=== PATIENT | female | born 1960 | race American Indian/Alaskan Native ===

== ENCOUNTER 2017-07-30 06:14 | Emergency (ER) | payer OTHER ==
[2017-07-30 06:15] VITALS: BMI 39.3
--- NOTE | 2017-07-30 07:18 | ED PDOC ---
Arrival/HPI - General Chief Complaint: Lower Extremity Problem/Injury Time Seen by Provider: 07/30/17 07:10 Historian: Patient - History of Present Illness Narrative History of Present Illness (Text): 07/30/17 07:20 57 year old female, whose past medical history includes NIDDM, hypertension, and anemia, presents to the emergency department complaining of right calf pain and swelling that began yesterday. Patient reports she woke up yesterday when the pain began and the pain worsens when walking. She denies any trauma associated with the symptoms. Patient denies ever smoking, any history or family history of blood clots, any recent travels, any fever, chills, chest pain , shortness of breath, nausea, vomiting, diarrhea, back pain, neck pain, headache, dizziness, or any other complaints. PMD: Dr. Shane Julian Time/Duration: Other (yesterday) Symptom Onset: Sudden Symptom Course: Unchanged Activities at Onset: Light Context: Home Past Medical History - Provider Review Nursing Documentation Reviewed: Yes - Travel History Have you recently traveled outside [place] w/in the past 3 mons?: No - Past History Past History: No Previous - Infectious Disease Hx of Infectious Diseases: None - Tetanus Immunization Tetanus Immunization: Unknown - Cardiac Hx Cardiac Disorders: Yes Hx Hypertension: Yes - Pulmonary Hx Respiratory Disorders: No - Neurological Hx Neurological Disorder: No - HEENT Hx HEENT Disorder: No - Renal Hx Renal Disorder: No - Endocrine/Metabolic Hx Endocrine Disorders: Yes Hx Diabetes Mellitus Type 1: Yes - Hematological/Oncological Hx Blood Disorders: Yes Hx Anemia: Yes Hx Blood Transfusions: Yes Hx Blood Transfusion Reaction: No - Integumentary Hx Dermatological Disorder: No - Musculoskeletal/Rheumatological Hx Musculoskeletal Disorders: Yes (TORN MENISCUS LEFT KNEE) Hx Arthritis: Yes - Gastrointestinal Hx Gastrointestinal Disorders: No - Genitourinary/Gynecological Hx Genitourinary Disorders: No - Psychiatric Hx Psychophysiologic Disorder: No Hx Substance Use: No - Past Surgical History Past Surgical History: No Previous - Surgical History Hx Hysterectomy: Yes - Anesthesia Hx Anesthesia: Yes Hx Anesthesia Reactions: No Hx Malignant Hyperthermia: No - Suicidal Assessment Feels Threatened In Home Enviroment: No Family/Social History - Physician Review Nursing Documentation Reviewed: Yes Family/Social History: denies: Blood Clots Smoking Status: Light Smoker < 10 Cigarettes Daily Hx Alcohol Use: Yes Hx Substance Use: No Hx Substance Use Treatment: No Allergies/Home Meds Allergies/Adverse Reactions: Allergies No Known Allergies Allergy (Verified 10/27/16 12:20) Home Medications: Home Meds Medication Instructions Recorded Confirmed Clonidine HCl 0.2 mg PO TID 09/12/12 07/30/17 Enalapril Maleate 10 mg PO DAILY 08/25/14 07/30/17 Aspirin [Aspirin Chewable] 81 mg PO DAILY 04/23/16 07/30/17 Gemfibrozil [Lopid] 600 mg PO BID 04/23/16 07/30/17 metFORMIN [glucOPHAGE] 850 mg PO TID 04/23/16 07/30/17 Review of Systems - Review of Systems Constitutional: absent: Fatigue, Fevers, Other (Chills) Eyes: absent: Eye Pain ENT: absent: TMJ Pain, Voice Changes Respiratory: absent: SOB Cardiovascular: Edema, Calf Pain. absent: Chest Pain, GUTIERREZ Gastrointestinal: absent: Diarrhea, Nausea, Vomiting Musculoskeletal: Other (right calf pain and swelling). absent: Back Pain, Neck Pain, Joint Swelling Neurological: Gait Changes (pain worsens when walking). absent: Headache, Dizziness, Facial Droop Hemo/Lymphatic: absent: Easy Bleeding Physical Exam - Physical Exam Narrative Physical Exam (Text): Head: Atraumatic. Normocephalic. Eyes: PERRL. EOMI. Conjunctivae are not pale. ENT: Mucous membranes are moist and intact. Neck: Supple. Full ROM. Cardiovascular: Regular rate. Regular rhythm. No murmurs, rubs, or gallops. Distal pulses are 2+ and symmetric. Pulmonary/Chest: No evidence of respiratory distress. Clear to auscultation bilaterally. No wheezing, rales or rhonchi. Abdominal: Soft and non-distended. There is no tenderness. No rebound, guarding, or rigidity. No organomegaly. Good bowel sounds. Back: No CVA tenderness. Extremities: Right calf pain with mild swelling. Palpable distal pulse on the right lower extremity. No erythema. No cyanosis. No clubbing. Full range of motion in all extremities. No knee warmth of swelling. No hip pain. No knee pain with ROM. No achilles pain. No foot pain. Skin: Skin is warm and dry. No petechiae. No purpura. No erythema or streaking. Neurological: Alert, awake, and oriented. Motor and sensory intact. No saddle anesthesia. No foot drop. No thigh numbness. No weakness noted in the lower extremity. Psychiatric: Good eye contact. Normal interaction, affect, and behavior. No motor or sensory deficits. Vital Signs Reviewed: Yes Vital Signs Temp Pulse Resp BP Pulse Ox 07/30/17 08:31 98.1 F 67 16 151/80 H 96 07/30/17 06:24 98.3 F 68 18 186/89 H 100 Temperature: Afebrile Blood Pressure: Hypertensive Pulse: Regular Respiratory Rate: Normal Appearance: Positive for: Well-Appearing, Non-Toxic, Comfortable Pain Distress: Mild Mental Status: Positive for: Alert and Oriented X 3 Medical Decision Making ED Course and Treatment: 07/30/17 07:20 Impression: 57 year old female presents complaining of right calf pain and swelling. Patient has no history or family history of blood clots. Differential Diagnosis included but are not limited to: DVT VS Muscle Strain Plan: -- Duplex lower extremity vein right US -- Reassess and disposition Progress Notes: Patient has no PE or DVT risk factors although presents with atraumatic calf pain. Will order doppler US of the leg. 07/30/17 08:08 Preliminary reading on US negative for DVT on the right leg. 07/30/17 17:30 Patient with no clinical signs of cellulitis or acute arterial deficits. She is currently neurologically intact and ambulatory. Stressed need for close follow-up for any persistent pain or swelling. Distal pulses are strong and palpable. No respiratory distress. No chest pain. No pleuritic pain. No focal motor or sensory deficits. Advised re-evaluation and possible repeat ultrasound if symptoms persis. - RAD Interpretation Radiology Orders: 07/30/17 07:19 DUPLEX LOWER EXTRM VEIN RIGHT [US] Stat - Scribe Statement The provider has reviewed the documentation as recorded by the Brandie Murray Provider Scribe Attestation: All medical record entries made by the Scribe were at my direction and personally dictated by me. I have reviewed the chart and agree that the record accurately reflects my personal performance of the history, physical exam, medical decision making, and the department course for this patient. I have also personally directed, reviewed, and agree with the discharge instructions and disposition. Disposition/Present on Arrival - Present on Arrival Any Indicators Present on Arrival: Yes History of DVT/PE: No History of Uncontrolled Diabetes: Yes Urinary Catheter: No History of Decub. Ulcer: No History Surgical Site Infection Following: None - Disposition Have Diagnosis and Disposition been Completed?: Yes Diagnosis: Right calf pain Disposition: HOME/ ROUTINE Disposition Time: 10:00 Patient Plan: Discharge Condition: GOOD Discharge Instructions (ExitCare): Leg Pain (ED) Additional Instructions: Rest. Ice. Elevate. For any redness, any fever, any numbness or weakness, any chest pain or shortness of breath, any persistent or worsening of any symptoms, get rechecked. If your calf pain persists or worsens please return within one week for repeat ultrasound. Take motrin/advil for pain as needed. Follow-up with your physician for re-evaluation in 2-3 days. Prescriptions: Naproxen 250 mg PO BID PRN #10 tablet PRN Reason: Pain, Mild (1-3) Referrals: [facility] [Outside] - Follow up with primary Shane Julian MD [Primary Care Provider] - Follow up with primary Forms: [employer] (Kazakh)
[2017-07-30 08:32] VITALS: BP 151/80; PULSE 67; RESP 16; TEMP 98.1; O2SAT 96
--- NOTE | 2017-07-31 13:55 | US ---
PROCEDURE: Right lower extremity venous US HISTORY: Leg pain and swelling. Evaluate for DVT. PHYSICIAN(S): Efrain Cain M.D. TECHNIQUE: Duplex sonography and color-flow Doppler with graded compression were used to evaluate the deep venous system of the right lower extremity. FINDINGS: The visualized deep venous system of the right lower extremity is sonographically normal and compressible. Normal waveforms and augmentation are seen. There is no sonographic evidence for deep venous thrombosis in the visualized segments of the right lower extremity. IMPRESSION: 1. No sonographic evidence for deep venous thrombosis in the visualized segments of the right lower extremity.
== END 2017-07-30 08:46 | disposition home or self-care (01) ==
LOC: ED 06:14
DX: M79.661 Pain in right lower leg (principal); I10 Essential (primary) hypertension; E10.9 Type 1 diabetes mellitus without complications; Z79.4 Long term (current) use of insulin; F17.210 Nicotine dependence, cigarettes, uncomplicated

== ENCOUNTER 2017-11-21 08:22 | Emergency (ER) | payer OTHER ==
[2017-11-21 08:59] VITALS: PULSE 79; RESP 18; TEMP 98; BMI 37.4
--- NOTE | 2017-11-21 09:30 | ED PDOC ---
Arrival/HPI <Jerrell Munoz - Last Filed: 11/21/17 10:00> - History of Present Illness Time/Duration: 24 hours Symptom Onset: Gradual Symptom Course: Unchanged Activities at Onset: Rest Context: Sitting <Rashad Keith - Last Filed: 11/21/17 10:44> - General Chief Complaint: Eye Problem Time Seen by Provider: 11/21/17 08:58 - History of Present Illness Narrative History of Present Illness (Text): 11/21/17 09:17 57F pmhx of HTN and NIDDM presents to [facility] ED w bilateral eye redness and for one day (started yesterday). Initially started in left eye, and is now in both eyes. Admits that eyes itch. Patient states did not try to use eye drops. Denies recent sick contacts, environment w/ any irritants. Woke up this morning w/ eyes still red and decided to come to the ED Denies: Acute vision changes, headaches, nausea, vomiting, diarrhea, fevers, chills PMH: as above PSH: denies ALL: NKDA Socialhx: occasional Tobacco/etoh use. Denies recreational drug use (Rashad Keith) Past Medical History - Provider Review Nursing Documentation Reviewed: Yes - Travel History Have you recently traveled outside [place] w/in the past 3 mons?: No - Past History Past History: No Previous - Infectious Disease Hx of Infectious Diseases: None - Tetanus Immunization Tetanus Immunization: Unknown - Cardiac Hx Cardiac Disorders: Yes Hx Hypertension: Yes - Pulmonary Hx Respiratory Disorders: No - Neurological Hx Neurological Disorder: No - HEENT Hx HEENT Disorder: No - Renal Hx Renal Disorder: No - Endocrine/Metabolic Hx Endocrine Disorders: Yes Hx Diabetes Mellitus Type 1: Yes - Hematological/Oncological Hx Blood Disorders: Yes Hx Anemia: Yes Hx Blood Transfusions: Yes Hx Blood Transfusion Reaction: No - Integumentary Hx Dermatological Disorder: No - Musculoskeletal/Rheumatological Hx Musculoskeletal Disorders: Yes (TORN MENISCUS LEFT KNEE) Hx Arthritis: Yes - Gastrointestinal Hx Gastrointestinal Disorders: No - Genitourinary/Gynecological Hx Genitourinary Disorders: No - Psychiatric Hx Psychophysiologic Disorder: No Hx Substance Use: No - Past Surgical History Past Surgical History: No Previous - Surgical History Hx Hysterectomy: Yes - Anesthesia Hx Anesthesia: Yes Hx Anesthesia Reactions: No Hx Malignant Hyperthermia: No - Suicidal Assessment Feels Threatened In Home Enviroment: No <Elke Keithn - Last Filed: 11/21/17 10:44> Family/Social History - Physician Review Nursing Documentation Reviewed: Yes Family/Social History: Other (non-contributory) Smoking Status: Current Some Days Smoker Hx Alcohol Use: Yes Frequency of alcohol use: Few days per week Hx Substance Use: No Hx Substance Use Treatment: No <SamanthalilliamDineshRashad - Last Filed: 11/21/17 10:44> Allergies/Home Meds <Jerrell Munoz - Last Filed: 11/21/17 10:00> <SamanthasukumarDinesh bustilloRashad - Last Filed: 11/21/17 10:44> Allergies/Adverse Reactions: Allergies No Known Allergies Allergy (Verified 11/21/17 08:56) Home Medications: Home Meds Medication Instructions Recorded Confirmed Clonidine HCl 0.2 mg PO TID 09/12/12 11/21/17 Gemfibrozil [Lopid] 600 mg PO BID 04/23/16 11/21/17 metFORMIN [glucOPHAGE] 850 mg PO TID 04/23/16 11/21/17 Review of Systems - Physician Review All systems were reviewed & negative as marked: Yes - Review of Systems Constitutional: absent: Fatigue, Weight Change, Fevers Eyes: Other (bilateral conjuctivitis). absent: Vision Changes, Photophobia, Eye Pain ENT: absent: Hearing Changes, Tinnitus, TMJ Pain, Epistaxis Respiratory: absent: SOB, Cough, Sputum Cardiovascular: absent: Chest Pain, Palpitations Gastrointestinal: absent: Abdominal Pain, Stool Changes, Constipation Genitourinary Female: absent: Dysuria, Frequency, Hematuria Musculoskeletal: absent: Arthralgias, Back Pain, Neck Pain Skin: absent: Rash, Pruritis, Skin Lesions Neurological: absent: Headache Endocrine: absent: Diaphoresis <Elke Keithn - Last Filed: 11/21/17 10:44> Physical Exam Vital Signs Reviewed: Yes Temperature: Afebrile Blood Pressure: Hypertensive (did not take clonidine this AM) Pulse: Regular Respiratory Rate: Normal Appearance: Positive for: Well-Appearing, Non-Toxic, Comfortable Pain Distress: None Mental Status: Positive for: Alert and Oriented X 3 - Systems Exam Head: Present: Atraumatic, Normocephalic Pupils: Present: PERRL Extroacular Muscles: Present: EOMI Conjunctiva: Present: Injected (bilateral injected) Respiratory/Chest: Present: Clear to Auscultation, Good Air Exchange. No: Respiratory Distress, Accessory Muscle Use Cardiovascular: Present: Regular Rate and Rhythm, Normal S1, S2. No: Murmurs Abdomen: No: Tenderness, Distention, Peritoneal Signs Upper Extremity: Present: Normal Inspection. No: Edema Lower Extremity: Present: Normal Inspection. No: CALF TENDERNESS Neurological: Present: GCS=15, Speech Normal Skin: Present: Warm. No: Rashes Psychiatric: Present: Alert, Oriented x 3, Normal Concentration <Rashad Keith - Last Filed: 11/21/17 10:44> Vital Signs Temp Pulse Resp BP Pulse Ox 11/21/17 09:49 79 18 135/74 99 11/21/17 08:58 98.0 F 79 18 176/97 H 100 Medical Decision Making <Jerrell Munoz - Last Filed: 11/21/17 10:00> Re-evaluation Time: 09:48 (Patient resting comfortably. BP rechecked 135/75) Reassessment Condition: Re-examined, Improved <Rashad Keith - Last Filed: 11/21/17 10:44> ED Course and Treatment: 11/21/17 09:45 Seen and examined with the resident. Our history and physical exam reveals a woman who is complaining of bilateral red eyes. Her left eye became red and itchy yesterday. It is spreading to her right eye today, but much less than the left.. No URI symptoms. No visual disturbance. (Jerrell Munoz) 11/21/17 09:33 cool compresses to the eye take home med Clonidine- recheck BP prescribe eye drops Gentamicin 11/21/17 09:48 BP rechecked 135/75 Visual Acuity test: 20/50 bilateral. Wears glasses, did not wear glasses during examination (Rashad Keith) Disposition/Present on Arrival - Present on Arrival Any Indicators Present on Arrival: No History of DVT/PE: No History of Uncontrolled Diabetes: Yes Urinary Catheter: No History of Decub. Ulcer: No - Disposition Have Diagnosis and Disposition been Completed?: Yes Patient Plan: Discharge <Jerrell Munoz - Last Filed: 11/21/17 10:00> - Present on Arrival Any Indicators Present on Arrival: No History of DVT/PE: No History of Uncontrolled Diabetes: Yes Urinary Catheter: No History of Decub. Ulcer: No History Surgical Site Infection Following: None - Disposition Have Diagnosis and Disposition been Completed?: Yes Disposition Time: 09:35 <Rashad Keith - Last Filed: 11/21/17 10:44> - Disposition Diagnosis: Conjunctivitis Disposition: HOME/ ROUTINE Patient Problems: Current Active Problems Problem Status Onset Conjunctivitis Acute Condition: GOOD Discharge Instructions (ExitCare): Conjunctivitis ([place]) (DC) Additional Instructions: Thank you for letting us take care of you today. You were treated for Bilateral Conjunctivitis. The emergency medical care you received today was directed at your acute symptoms. If you were prescribed any medication, please fill it and take as directed. Put cold compresses on your eyes as needed. Take anti-biotic eye drops as directed. It may take several days for your symptoms to resolve. Return to the Emergency Department if your symptoms worsen, do not improve, or if you have any other problems. Please contact your doctor or call one of the physicians/clinics you have been referred to that are listed on the Patient Visit Information form that is included in your discharge packet. Bring any paperwork you were given at discharge with you along with any medications you are taking to your follow up visit. Our treatment cannot replace ongoing medical care by a primary care provider (PCP) outside of the emergency department. Thank you for allowing the [facility] team to be part of your care today. Prescriptions: Gentamicin Sulfate [Garamycin 0.3% Opth] 2 drop BOTHEYES Q4H 3 Days bottle Forms: [employer] (Thai)
[2017-11-21 09:49] VITALS: BP 135/74; O2SAT 99
== END 2017-11-21 10:04 | disposition home or self-care (01) ==
LOC: ED 08:22
DX: H10.9 Unspecified conjunctivitis (principal); I10 Essential (primary) hypertension; E11.9 Type 2 diabetes mellitus without complications; F17.200 Nicotine dependence, unspecified, uncomplicated

== ENCOUNTER 2017-12-16 06:14 | Emergency (ER) | payer OTHER ==
[2017-12-16 06:14] VITALS: BMI 37.4
[2017-12-16] MEDS ORDERED: Sodium Chloride 0.9% 1,000 ML IV STA (07:15)
--- NOTE | 2017-12-16 07:24 | ED PDOC ---
Arrival/HPI - General Chief Complaint: Back Pain Time Seen by Provider: 12/16/17 07:10 Historian: Patient - History of Present Illness Narrative History of Present Illness (Text): 12/16/17 07:15 57 year old female, whose PMH includes hypertension and diabetes, who presents to the emergency department complaining of right flank pain that radiates to her lower abdomen since 1 day. Patient denies any nausea, vomiting, diarrhea, chest pain, shortness of breath, dysuria, or other complaints. No trauma or falls. Time/Duration: 24 hours Symptom Onset: Sudden Symptom Course: Unchanged Context: Home Past Medical History - Provider Review Nursing Documentation Reviewed: Yes - Past History Past History: No Previous - Infectious Disease Hx of Infectious Diseases: None - Tetanus Immunization Tetanus Immunization: Unknown - Reproductive Menopause: Yes - Cardiac Hx Cardiac Disorders: Yes Hx Hypertension: Yes - Pulmonary Hx Respiratory Disorders: No - Neurological Hx Neurological Disorder: No - HEENT Hx HEENT Disorder: No - Renal Hx Renal Disorder: No - Endocrine/Metabolic Hx Endocrine Disorders: Yes Hx Diabetes Mellitus Type 1: Yes - Hematological/Oncological Hx Blood Disorders: Yes Hx Anemia: Yes Hx Blood Transfusions: Yes Hx Blood Transfusion Reaction: No - Integumentary Hx Dermatological Disorder: No - Musculoskeletal/Rheumatological Hx Musculoskeletal Disorders: Yes (TORN MENISCUS LEFT KNEE) Hx Arthritis: Yes Other/Comment: uses cane - Gastrointestinal Hx Gastrointestinal Disorders: No - Genitourinary/Gynecological Hx Genitourinary Disorders: No - Psychiatric Hx Psychophysiologic Disorder: No Hx Substance Use: No - Past Surgical History Past Surgical History: No Previous - Surgical History Hx Hysterectomy: Yes - Anesthesia Hx Anesthesia: Yes Hx Anesthesia Reactions: No Hx Malignant Hyperthermia: No - Suicidal Assessment Feels Threatened In Home Enviroment: No Family/Social History - Physician Review Nursing Documentation Reviewed: Yes Family/Social History: Unknown Family HX Smoking Status: Light Smoker < 10 Cigarettes Daily Hx Alcohol Use: No Hx Substance Use: No Hx Substance Use Treatment: No Allergies/Home Meds Allergies/Adverse Reactions: Allergies No Known Allergies Allergy (Verified 12/16/17 06:47) Home Medications: Home Meds Medication Instructions Recorded Confirmed Clonidine HCl 0.2 mg PO TID 09/12/12 12/16/17 metFORMIN [glucOPHAGE] 850 mg PO TID 04/23/16 12/16/17 Review of Systems - Review of Systems Constitutional: absent: Fevers Respiratory: absent: SOB Cardiovascular: absent: Chest Pain Gastrointestinal: Abdominal Pain (lower abdominal pain ). absent: Diarrhea, Nausea, Vomiting Genitourinary Female: absent: Dysuria, Frequency Musculoskeletal: Other (right flank pain ) Skin: absent: Rash Neurological: absent: Headache Endocrine: absent: Diaphoresis Physical Exam Vital Signs Reviewed: Yes Vital Signs Temp Pulse Resp BP Pulse Ox 12/16/17 11:00 98.2 F 82 16 135/79 98 12/16/17 08:34 97.9 F 76 18 132/77 96 12/16/17 06:35 97.8 F 76 20 144/79 98 Temperature: Afebrile Blood Pressure: Normal Pulse: Regular Respiratory Rate: Normal Appearance: Positive for: Well-Appearing, Non-Toxic, Comfortable Pain Distress: None Mental Status: Positive for: Alert and Oriented X 3 - Systems Exam Head: Present: Atraumatic, Normocephalic Pupils: Present: PERRL Extroacular Muscles: Present: EOMI Conjunctiva: Present: Normal Mouth: Present: Moist Mucous Membranes Respiratory/Chest: Present: Clear to Auscultation, Good Air Exchange. No: Respiratory Distress, Accessory Muscle Use, Wheezes, Rales, Retracting, Rhonchi Cardiovascular: Present: Regular Rate and Rhythm, Normal S1, S2. No: Murmurs Abdomen: No: Tenderness, Distention, Peritoneal Signs, Rebound, Guarding Neurological: Present: GCS=15, CN II-XII Intact, Speech Normal Skin: Present: Warm, Dry, Normal Color. No: Rashes Psychiatric: Present: Alert, Oriented x 3, Normal Insight, Normal Concentration Medical Decision Making ED Course and Treatment: 12/16/17 Impression: 57 year old female with unremarkable physical exam complaining of right sided flank pain radiating to lower abdomen since 1 day. ro renal stone, uti, msk pain Plan: -- CT abdomen and pelvis -- Labs -- Urinalysis -- Toradol and Sodium Chloride -- Reassess and disposition Progress Notes: 12/16/17 08:25 CT abdomen and pelvis: FINDINGS: Lung bases: Mild dependent atelectatic changes in the lungs. ABDOMEN: Liver: Unremarkable. Gallbladder and bile ducts: Cholelithiasis in a distended gallbladder. No ductal dilation. Pancreas: Unremarkable. No ductal dilation. Spleen: Unremarkable. No splenomegaly. Adrenals: Unremarkable. No mass. 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 No obstructing stones. No hydronephrosis. Stomach and bowel: Unremarkable. No obstruction. No mucosal thickening. Appendix: Normal appendix. PELVIS: Bladder: Questionable minimal stranding surrounding the bladder for which clinical correlation for cystitis is suggested. No stones. Reproductive: Surgically absent uterus. ABDOMEN and PELVIS: Intraperitoneal space: Unremarkable. No free air. No significant fluid collection. Bones/joints: Degenerative changes of the osseous structures. No acute fracture. No dislocation. Soft tissues: Unremarkable. Vasculature: Unremarkable. No abdominal aortic aneurysm. Lymph nodes: Unremarkable. No enlarged lymph nodes. IMPRESSION: 1. Cholelithiasis in a distended gallbladder. 2. Questionable minimal stranding surrounding the bladder for which clinical correlation for cystitis is suggested. 12/16/17 13:44 ct shows no e/o ofrenal stone us neg for cholecystitis no ruq pain, no leukoctyosis. adivse close outpt fu. pt observed in nad. pain improved - Lab Interpretations Lab Results: 12/16/17 07:35 12/16/17 07:35 Lab Results 12/16/17 07:35: Sodium 139, Potassium 3.9, Chloride 105, Carbon Dioxide 25, Anion Gap 14, BUN 16, Creatinine 0.7, Est GFR ( Amer) > 60, Est GFR (Non- Af Amer) > 60, Random Glucose 87, Calcium 9.5, Total Bilirubin 0.5, AST 28, ALT 24, Alkaline Phosphatase 58, Total Protein 7.3, Albumin 4.1, Globulin 3.2, Albumin/Globulin Ratio 1.3, Lipase 209 12/16/17 07:35: Urine Color Light yellow, Urine Appearance Clear, Urine pH 6.0, Ur Specific [place] 1.010, Urine Protein Negative, Urine Glucose (UA) Negative, Urine Ketones Negative, Urine Blood Negative, Urine Nitrate Negative, Urine Bilirubin Negative, Urine Urobilinogen 0.2, Ur Leukocyte Esterase Trace H, Urine RBC 0 - 2, Urine WBC 2 - 5, Ur Epithelial Cells 3 - 4, Urine Bacteria Few 12/16/17 07:35: PT 10.9, INR 0.95, APTT 27.3 12/16/17 07:35: WBC 4.4 L, RBC 3.90, Hgb 12.5, Hct 35.2 L, MCV 90.3, MCH 32.1, MCHC 35.5, RDW 14.5, Plt Count 150, MPV 9.9, Gran % 48.1 L, Lymph % (Auto) 37.0 H, Mineral % (Auto) 8.8 H, Eos % (Auto) 5.2 H, Baso % (Auto) 0.9, Gran # 2.12, Lymph # (Auto) 1.6, Mineral # (Auto) 0.4, Eos # (Auto) 0.2, Baso # (Auto) 0.04 I have reviewed the lab results: Yes - RAD Interpretation Radiology Orders: 12/16/17 07:14 ABD & PELVIS W/O PO OR IV CONT [CT] Stat 12/16/17 08:25 ABDOMEN COMPLETE [US] Stat Course Developer: Radiologist - Medication Orders Current Medication Orders: Discontinued Medications Sodium Chloride (Sodium Chloride 0.9%) 1,000 mls @ 999 mls/hr IV .Q1H1M STA Stop: 12/16/17 08:15 Last Admin: 12/16/17 07:43 Dose: 999 mls/hr eMAR Start Stop Document 12/16/17 07:43 SRE (Rec: 12/16/17 07:44 SRE [id number]) Intravenous Solution Start Date 12/16/17 Start Time 07:40 End Date 12/16/17 End time 08:40 Total Infusion Time 60 Ketorolac Tromethamine (Toradol) 30 mg IVP STAT STA Stop: 12/16/17 07:16 Last Admin: 12/16/17 07:34 Dose: 30 mg MAR Pain Assessment Document 12/16/17 07:34 SRE (Rec: 12/16/17 07:41 SRE [id number]) Pain Reassessment Is this a pain reassessment? Yes Sleep Is patient sleeping during reassessment? No Presence of Pain Presence of Pain Yes Pain Scale Used Pain Scale Used Numeric Location Left, Right or Bilateral Right Pain Location Body Site Back Description Description Intermittent IVP Administration Document 12/16/17 07:34 SRE (Rec: 12/16/17 07:41 SRE [id number]) Charges for Administration # of IVP Administrations 1 - Scribe Statement The provider has reviewed the documentation as recorded by the Brandie Snwo Provider Scribe Attestation: All medical record entries made by the Scribe were at my direction and personally dictated by me. I have reviewed the chart and agree that the record accurately reflects my personal performance of the history, physical exam, medical decision making, and the department course for this patient. I have also personally directed, reviewed, and agree with the discharge instructions and disposition. Disposition/Present on Arrival - Present on Arrival Any Indicators Present on Arrival: No History of DVT/PE: No History of Uncontrolled Diabetes: Yes Urinary Catheter: No History of Decub. Ulcer: No History Surgical Site Infection Following: None - Disposition Have Diagnosis and Disposition been Completed?: Yes Diagnosis: Abdominal pain Disposition: HOME/ ROUTINE Disposition Time: 11:00 Condition: STABLE Discharge Instructions (ExitCare): Acute Abdomen (Belly Pain), Gallstones (DC) Additional Instructions: please follow up with your doctor. return to er with worsening symptoms or concerns. Referrals: [facility] [Outside] - Follow up with primary [facility] [Outside] - Follow up with primary [facility] [Outside] - Follow up with primary Anju Harrell MD [Medical Doctor] - Follow up with primary Yovany Carey MD [Medical Doctor] - Follow up with primary Forms: [employer] (Colombian)
[2017-12-16 08:20] LABS: URINE BILIRUBIN NEGATIVE (NEGATIVE); URINE BLOOD NEGATIVE (NEGATIVE); URINE GLUCOSE (UA) NEGATIVE (NEGATIVE); URINE LEUKOCYTE ESTERASE TRACE Leu/uL (NEGATIVE); URINE PROTEIN NEGATIVE mg/dL (<30 mg/dL); URINE UROBILINOGEN 0.2 E.U./dL (<1 E.U./dL)
[2017-12-16 08:23] LABS: BASO # 0.04 K/mm3 (0.0-2.0); BASO % 0.9 % (0.0-3.0); EOS # 0.2 (0.0-0.7); EOS % 5.2 % (1.5-5.0); GRAN # 2.12 (1.4-6.5); GRAN % 48.1 % (50.0-68.0); HEMOGLOBIN 12.5 g/dL (12.0-16.0); LYMPH # 1.6 (1.2-3.4); MEAN CELL VOLUME 90.3 fl (80.0-105.0); MEAN CORPUSCULAR HEMOGLOBIN 32.1 pg (25.0-35.0); MEAN CORPUSCULAR HGB CONC 35.5 g/dl (31.0-37.0); MEAN PLATELET VOLUME 9.9 fl (7.0-11.0); MONO # 0.4 (0.1-0.6); MONO % 8.8 % (1.0-6.0); RBC 3.9 10^6/uL (3.5-6.1); RED CELL DISTRIBUTION WIDTH 14.5 % (11.5-14.5); WHITE BLOOD COUNT 4.4 10^3/ul (4.5-11.0)
[2017-12-16 08:25] LABS: URINE APPEARANCE CLEAR (CLEAR); URINE COLOR LIGHT YELLOW (YELLOW)
[2017-12-16 08:26] LABS: ALB/GLOB RATIO 1.3 (1.1-1.8); ALBUMIN 4.1 g/dL (3.0-4.8); ALT/SGPT 24 U/L (7-56); AST/SGOT 28 U/L (14-36); BLOOD UREA NITROGEN 16 mg/dL (7-21); CALCIUM 9.5 mg/dL (8.4-10.5); GFR AFRICAN-AMERICAN > 60; GFR NON-AFRICAN AMERICAN > 60; LIPASE 209 U/L (23-300)
[2017-12-16 08:33] LABS: INR 0.95 (0.93-1.08); PARTIAL THROMBOPLASTIN TIME 27.3 Seconds (25.1-36.5); PROTHROMBIN TIME 10.9 SECONDS (9.4-12.5)
[2017-12-16 08:40] LABS: URINE BACTERIA FEW (NEG); URINE RBC 0 - 2 /hpf (0-2)
--- NOTE | 2017-12-16 08:43 | CT ---
PROCEDURE: CT Abdomen and Pelvis without intravenous contrast HISTORY: right flank pain COMPARISON: None. TECHNIQUE: Technique. Contrast Dose: Radiation dose: Total exam DLP = Total exam DLP = mGy-cm. This CT exam was performed using one or more of the following dose reduction techniques: Automated exposure control, adjustment of the mA and/or kV according to patient size, and/or use of iterative reconstruction technique. FINDINGS: LOWER THORAX: Unremarkable. LIVER: Unremarkable. No gross lesion or ductal dilatation. GALLBLADDER AND BILE DUCTS: Cholelithiasis. PANCREAS: Unremarkable. No gross lesion or ductal dilatation. SPLEEN: Unremarkable. ADRENALS: Unremarkable. No mass. KIDNEYS AND URETERS: Unremarkable. No hydronephrosis. No solid mass. VASCULATURE: Unremarkable. No aortic aneurysm. BOWEL: Unremarkable. No obstruction. No gross mural thickening. APPENDIX: Unremarkable. Normal appendix. PERITONEUM: Unremarkable. No free fluid. No free air. LYMPH NODES: Unremarkable. No enlarged lymph nodes. BLADDER: Unremarkable. REPRODUCTIVE: Unremarkable. BONES: No acute fracture. OTHER FINDINGS: None. IMPRESSION: Cholelithiasis.
--- NOTE | 2017-12-16 11:07 | US ---
HISTORY: right sided pain COMPARISON: 12/16/2017 CT abdomen and pelvis TECHNIQUE: Sonographic evaluation of the abdomen. FINDINGS: LIVER: Measures 14.1 cm. Patent portal vein. Portal venous flow: Hepatopetal. Unremarkable echogenicity of the liver parenchyma. No mass. No intrahepatic bile duct dilatation. GALLBLADDER: Cholelithiasis. Negative study for gallbladder wall thickening, pericholecystic fluid, sonographic Rodriguez's sign. COMMON BILE DUCT: Measures 6.3 mm. No stones. No dilatation. PANCREAS: Unremarkable as visualized. No mass. No ductal dilatation. RIGHT KIDNEY: Measures 4.7 x 11.1cm. Normal echogenicity. No calculus, mass, or hydronephrosis. LEFT KIDNEY: Measures 5.4 x 10.5cm. Normal echogenicity. No calculus, mass, or hydronephrosis. SPLEEN: Normal in size and contour. No mass. AORTA: No aneurysmal dilatation. IVC: Unremarkable. OTHER FINDINGS: None. IMPRESSION: Cholelithiasis. No sonographic evidence of acute cholecystitis.
[2017-12-16 12:05] VITALS: BP 135/79; PULSE 82; RESP 16; TEMP 98.2; O2SAT 98
== END 2017-12-16 11:30 | disposition home or self-care (01) ==
LOC: ED 06:14
DX: R10.30 Lower abdominal pain, unspecified (principal); E11.9 Type 2 diabetes mellitus without complications; I10 Essential (primary) hypertension; F17.210 Nicotine dependence, cigarettes, uncomplicated
CPT/HCPCS: 74176; 76700; 80053; 81001; 83690; 85025; 85610; 85730; 87086; 96361; 96374; 99284; J1885; J7040

== ENCOUNTER 2018-08-27 07:51 | Emergency (ER) | payer OTHER ==
[2018-08-27 08:12] VITALS: BMI 34.0
[2018-08-27 08:20] VITALS: TEMP 98.2
--- NOTE | 2018-08-27 08:25 | ED PDOC ---
Arrival/HPI - General Chief Complaint: Female Genitourinary Time Seen by Provider: 08/27/18 08:13 Historian: Patient - History of Present Illness Narrative History of Present Illness (Text): 08/27/18 08:22 58 year old female, whose past medical history includes diabetes and herpes,who presents to the Emergency department complaining of urinary frequency. Patient states she used the bathroom and when she wiped, there was blood on the tissue and d/c. Patient notes associated lower back pain. Patient denies any fevers, chills, chest pain, shortness of breath, abdominal pain, nausea, vomiting, diarrhea, back pain, neck pain, headache, dizziness, or any other complaint. Time/Duration: Prior to Arrival Symptom Onset: Gradual Symptom Course: Improving Activities at Onset: Light Context: Home Past Medical History - Provider Review Nursing Documentation Reviewed: Yes - Past History Past History: No Previous - Infectious Disease Hx of Infectious Diseases: None - Tetanus Immunization Tetanus Immunization: Unknown - Cardiac Hx Cardiac Disorders: Yes Hx Hypertension: Yes - Pulmonary Hx Respiratory Disorders: No - Neurological Hx Neurological Disorder: No - HEENT Hx HEENT Disorder: No - Renal Hx Renal Disorder: No - Hematological/Oncological Hx Anemia: Yes (no longer) - Integumentary Hx Dermatological Disorder: Yes - Musculoskeletal/Rheumatological Hx Musculoskeletal Disorders: Yes (TORN MENISCUS LEFT KNEE) Hx Arthritis: Yes Other/Comment: Uses cane - Gastrointestinal Hx Gastrointestinal Disorders: No - Genitourinary/Gynecological Hx Genitourinary Disorders: Yes (hx fibroid uterus) - Psychiatric Hx Psychophysiologic Disorder: No Hx Substance Use: No - Past Surgical History Past Surgical History: No Previous - Surgical History Hx Cholecystectomy: Yes Hx Hysterectomy: Yes - Anesthesia Hx Anesthesia: Yes Hx Anesthesia Reactions: No Hx Malignant Hyperthermia: No - Suicidal Assessment Feels Threatened In Home Enviroment: No Family/Social History - Physician Review Nursing Documentation Reviewed: Yes Family/Social History: Unknown Family HX Smoking Status: Light Smoker < 10 Cigarettes Daily Hx Alcohol Use: No Hx Substance Use: No Hx Substance Use Treatment: No Allergies/Home Meds Allergies/Adverse Reactions: Allergies No Known Allergies Allergy (Verified 12/16/17 06:47) Home Medications: Home Meds Medication Instructions Recorded Confirmed Acyclovir [Zovirax] 400 mg PO BID 01/11/18 01/16/18 Aspirin [Ecotrin] 81 mg PO DAILY 01/11/18 01/16/18 Atorvastatin [Lipitor] 20 mg PO DAILY 01/11/18 01/16/18 Mometasone 0.1% [Elocon 0.1%] 15 gm TP BID 01/11/18 01/16/18 RX: Gemfibrozil [Lopid] 600 mg PO 01/11/18 RX: Meloxicam 7.5 mg PO DAILY 01/11/18 01/16/18 RX: Pioglitazone HCl 30 mg PO DAILY 01/11/18 01/16/18 RX: cloNIDine [Catapres] 0.2 mg PO DAILY 01/11/18 01/16/18 Review of Systems - Physician Review All systems were reviewed & negative as marked: Yes - Review of Systems Constitutional: Normal Eyes: Normal ENT: Normal Respiratory: Normal. absent: SOB, Cough Cardiovascular: Normal. absent: Chest Pain Gastrointestinal: Normal. absent: Abdominal Pain, Vomiting Genitourinary Female: Frequency, Vaginal Discharge. absent: Dysuria Musculoskeletal: Other (lower back pain). absent: Back Pain, Neck Pain Skin: Normal. absent: Rash Neurological: Normal. absent: Headache Endocrine: Normal Hemo/Lymphatic: Normal Psychiatric: Normal Physical Exam - Physical Exam Narrative Physical Exam (Text): 08/27/18 08:28 Gen: NAD, cooperative, well appearing, non-toxic. Head: NCAT. MOUTH: moist MM, posterior pharynx without erythema or exudate, uvula midline. CV: (+) S1S2, RRR, no M/G/R LUNGS: CTA B/L, No W/R/R, good air movement Abd: Soft, NTTP, no guarding, rebound or rigidity. Neuro: AAO x 3, GCS 15, CN 2-12 intact ext: no cyanosis or edema Vital Signs Reviewed: Yes Vital Signs Temp Pulse Resp BP Pulse Ox 08/27/18 08:21 153/85 H 08/27/18 07:52 98.2 F 87 18 158/105 H 98 Temperature: Afebrile Blood Pressure: Hypertensive Pulse: Regular Respiratory Rate: Normal Appearance: Positive for: Well-Appearing, Non-Toxic, Comfortable Pain Distress: None Mental Status: Positive for: Alert and Oriented X 3 Medical Decision Making ED Course and Treatment: 08/27/18 08:30 Impression: 58 year old female presents to the Emergency department complaining of urinary symptoms. Plan: -- Urine C&S -- UA -- Reassess and disposition Progress Notes: 08/27/18 09:41 Results discussed with patient, who will be treated for UTI. Pt will be given a refill for acyclovir. Pt told to contact PMD and try to be seen this wee. - Scribe Statement The provider has reviewed the documentation as recorded by the Scribmaria elena Hamilton All medical record entries made by the Lorenibmaria elena were at my direction and personally dictated by me. I have reviewed the chart and agree that the record accurately reflects my personal performance of the history, physical exam, medical decision making, and the department course for this patient. I have also personally directed, reviewed, and agree with the discharge instructions and disposition. Disposition/Present on Arrival - Present on Arrival Any Indicators Present on Arrival: No History of DVT/PE: No History of Uncontrolled Diabetes: No Urinary Catheter: No History of Decub. Ulcer: No History Surgical Site Infection Following: None - Disposition Have Diagnosis and Disposition been Completed?: Yes Diagnosis: Cystitis Disposition: HOME/ ROUTINE Disposition Time: 09:38 Patient Plan: Discharge Condition: GOOD Discharge Instructions (ExitCare): Acute Cystitis (DC) Prescriptions: Sulfamethoxazole/Trimethoprim [Bactrim DS 800 mg-160 mg] 1 tab PO BID #14 tab Referrals: Jigar Jacobo MD [Medical Doctor] - Follow up with primary Forms: [employer] (Chinese)
[2018-08-27 09:06] LABS: URINE BILIRUBIN NEGATIVE (NEGATIVE); URINE BLOOD MODERATE (NEGATIVE); URINE GLUCOSE (UA) NEGATIVE (NEGATIVE); URINE LEUKOCYTE ESTERASE SMALL Leu/uL (NEGATIVE); URINE PROTEIN NEGATIVE mg/dL (<30 mg/dL); URINE UROBILINOGEN 0.2 E.U./dL (<1 E.U./dL)
[2018-08-27 09:17] LABS: URINE APPEARANCE CLEAR (CLEAR); URINE COLOR YELLOW (YELLOW)
[2018-08-27 09:24] LABS: URINE BACTERIA TRACE /hpf; URINE RBC 15 - 20 /hpf (0-2)
[2018-08-27 09:59] VITALS: BP 149/75; PULSE 72; RESP 16; O2SAT 100
== END 2018-08-27 09:58 | disposition home or self-care (01) ==
LOC: ED 07:51
DX: N30.90 Cystitis, unspecified without hematuria (principal)

== ENCOUNTER 2018-10-22 12:42 | Emergency (ER) | payer OTHER ==
[2018-10-22 12:42] VITALS: BMI 34.0
[2018-10-22 13:06] VITALS: BP 123/86; PULSE 88; RESP 16; TEMP 97.5; O2SAT 98
--- NOTE | 2018-10-22 13:48 | ED PDOC ---
Arrival/HPI - General Chief Complaint: Back Pain Time Seen by Provider: 10/22/18 13:09 Historian: Patient - History of Present Illness Narrative History of Present Illness (Text): 10/22/18 13:45 A 58 year old female, whose past medical history includes hypertension and diabetes, presents to the emergency department complaining of left lower back pain for the past 5 days. Patient reports 5 days ago, patient went to the [facility] to be evaluated and was told it was a muscular spasm. States later on patient began experiencing pain radiate down left leg. Patient took Tylenol 325 mg(last taken 07:00 this morning), and Ibuprofen. Patient denies any bowel/bladder incontinence, injuries/trauma, fever, chills, any urinary symptoms, or any other complaints at this time. PMD: Dr. Shane Young Past Medical History - Provider Review Nursing Documentation Reviewed: Yes - Past History Past History: No Previous - Infectious Disease Hx of Infectious Diseases: None - Tetanus Immunization Tetanus Immunization: Unknown - Cardiac Hx Cardiac Disorders: Yes Hx Hypertension: Yes - Pulmonary Hx Respiratory Disorders: No - Neurological Hx Neurological Disorder: No - HEENT Hx HEENT Disorder: No - Renal Hx Renal Disorder: No - Endocrine/Metabolic Hx Endocrine Disorders: Yes Hx Diabetes Mellitus Type 2: Yes - Hematological/Oncological Hx Blood Disorders: Yes Hx Anemia: Yes - Integumentary Hx Dermatological Disorder: Yes - Musculoskeletal/Rheumatological Hx Musculoskeletal Disorders: Yes Hx Arthritis: Yes Hx Back Pain: Yes - Gastrointestinal Hx Gastrointestinal Disorders: No - Genitourinary/Gynecological Hx Genitourinary Disorders: Yes (hx fibroid uterus) - Psychiatric Hx Psychophysiologic Disorder: No Hx Substance Use: No - Past Surgical History Past Surgical History: No Previous - Surgical History Hx Cholecystectomy: Yes Hx Hysterectomy: Yes - Anesthesia Hx Anesthesia: Yes Hx Anesthesia Reactions: No Hx Malignant Hyperthermia: No - Suicidal Assessment Feels Threatened In Home Enviroment: No Family/Social History - Physician Review Nursing Documentation Reviewed: Yes Family/Social History: No Known Family HX Smoking Status: Light Smoker < 10 Cigarettes Daily Hx Alcohol Use: No Hx Substance Use: No Hx Substance Use Treatment: No Allergies/Home Meds Allergies/Adverse Reactions: Allergies No Known Allergies Allergy (Verified 10/22/18 12:59) Home Medications: Home Meds Medication Instructions Recorded Confirmed Acyclovir [Zovirax] 400 mg PO BID 01/11/18 01/16/18 Aspirin [Ecotrin] 81 mg PO DAILY 01/11/18 01/16/18 Atorvastatin [Lipitor] 20 mg PO DAILY 01/11/18 01/16/18 Mometasone 0.1% [Elocon 0.1%] 15 gm TP BID 01/11/18 01/16/18 RX: Gemfibrozil [Lopid] 600 mg PO 01/11/18 RX: Meloxicam 7.5 mg PO DAILY 01/11/18 01/16/18 RX: Pioglitazone HCl 30 mg PO DAILY 01/11/18 01/16/18 RX: cloNIDine [Catapres] 0.2 mg PO DAILY 01/11/18 01/16/18 Review of Systems - Physician Review All systems were reviewed & negative as marked: Yes - Review of Systems Constitutional: absent: Fevers, Night Sweats Genitourinary Female: absent: Dysuria, Frequency, Hematuria, Urine Output Changes Musculoskeletal: Back Pain (lower left-side back pain radiating left leg) Physical Exam Vital Signs Reviewed: Yes Vital Signs Temp Pulse Resp BP Pulse Ox 10/22/18 13:00 97.5 F L 88 16 123/86 98 Temperature: Afebrile Blood Pressure: Normal Pulse: Regular Respiratory Rate: Normal Appearance: Positive for: Well-Appearing, Non-Toxic, Comfortable Pain Distress: None Mental Status: Positive for: Alert and Oriented X 3 - Systems Exam Head: Present: Atraumatic, Normocephalic Pupils: Present: PERRL Extroacular Muscles: Present: EOMI Conjunctiva: Present: Normal Mouth: Present: Moist Mucous Membranes Neck: Present: Normal Range of Motion Respiratory/Chest: Present: Clear to Auscultation, Good Air Exchange. No: Respiratory Distress, Accessory Muscle Use Cardiovascular: Present: Regular Rate and Rhythm, Normal S1, S2. No: Murmurs Abdomen: No: Tenderness, Distention, Peritoneal Signs Back: Present: Normal Inspection, Paraspinal Tenderness (left-side lumbar region). No: Midline Tenderness, Pain with Leg Raise Upper Extremity: Present: Normal Inspection. No: Cyanosis, Edema Lower Extremity: Present: Normal Inspection, Other (negative straight leg raise). No: Edema Neurological: Present: GCS=15, CN II-XII Intact, Speech Normal, Motor Func Grossly Intact, Normal Sensory Function, Norm Deep Tendon Reflexes Skin: Present: Warm, Dry, Normal Color. No: Rashes Psychiatric: Present: Alert, Oriented x 3, Normal Insight, Normal Concentration Medical Decision Making ED Course and Treatment: 10/22/18 13:52 Impression: 58 year old female with left lower back pain. Plan: -- Toradol -- Reassess and disposition Progress Notes: 10/22/18 14:20 Upon reassessment, patient states she feels much better after receiving Toradol. Patient has been advised to stop taking any Ibuprofen, or any other anti inflammatory medications. Patient to be prescribed Toradol. - Medication Orders Current Medication Orders: Discontinued Medications Ketorolac Tromethamine (Toradol) 60 mg IM STAT STA Stop: 10/22/18 13:22 - Scribe Statement The provider has reviewed the documentation as recorded by the Brandie Riddle Provider Scribe Attestation: All medical record entries made by the Scribe were at my direction and personally dictated by me. I have reviewed the chart and agree that the record accurately reflects my personal performance of the history, physical exam, medical decision making, and the department course for this patient. I have also personally directed, reviewed, and agree with the discharge instructions and disposition. Disposition/Present on Arrival - Present on Arrival Any Indicators Present on Arrival: No History of DVT/PE: No History of Uncontrolled Diabetes: No Urinary Catheter: No History of Decub. Ulcer: No History Surgical Site Infection Following: None - Disposition Have Diagnosis and Disposition been Completed?: Yes Diagnosis: Low back pain, Sciatica Disposition: HOME/ ROUTINE Disposition Time: 14:20 Patient Plan: Discharge Condition: IMPROVED Discharge Instructions (ExitCare): Low Back Pain (DC), Sciatica (DC) Additional Instructions: TRAM JOAQUIN, thank you for letting us take care of you today. Your provider was Greer Pathak MD and you were treated for BACK PAIN. The emergency medical care you received today was directed at your acute symptoms. If you were prescribed any medication, please fill it and take as directed. DO NOT TAKE ANY IBUPROFEN, ADVIL, MOTRIN OR ANY OTHER ANTI INFLAMMATORY MEDICATION WHILE TAKING THE KETORALAC. It may take several days for your symptoms to resolve. Return to the Emergency Department if your symptoms worsen, do not improve, or if you have any other problems. Please go to your appointmen with your doctor on Tuesday, October 25, 2018 as previously scheduled. Bring any paperwork you were given at discharge with you along with any medications you are taking to your follow up visit. Our treatment cannot replace ongoing medical care by a primary care provider outside of the emergency department. Thank you for allowing the [facility] team to be part of your care today. Prescriptions: Ketorolac Tromethamine [Toradol] 10 mg PO Q6H PRN #15 tab PRN Reason: Pain, Moderate (4-7) Referrals: Shane Julian MD [Primary Care Provider] - Follow up with primary Forms: [employer] (German)
== END 2018-10-22 14:46 | disposition home or self-care (01) ==
LOC: ED 12:42
DX: M54.40 Lumbago with sciatica, unspecified side (principal)
CPT/HCPCS: 96372; 99282; J1885

== ENCOUNTER 2018-12-12 10:59 | Emergency (ER) | payer OTHER ==
[2018-12-12 11:26] VITALS: BMI 32.3
--- NOTE | 2018-12-12 11:42 | ED PDOC ---
Arrival/HPI - General Time Seen by Provider: 12/12/18 11:11 Historian: Patient - History of Present Illness Narrative History of Present Illness (Text): 12/12/18 11:32 58 year old female, whose past medical history includes hypertension (On Clonidine) and diabetes, presents to the emergency department complaining of an allergic reaction to the face that began 4 days ago. Patient reports she was using Pimecrolimus cream and Venzoyl wash prescribed by her Delinquent Tax Collection Assistant before the symptoms began. Patient reports she took Benadryl over the weekend with no improvement. She did not take her hypertension medication today. Patient reports a tingling sensation to the lips and eyes, but denies any fever, chills, chest pain, shortness of breath, nausea, vomiting, diarrhea, urinary symptoms, back pain, neck pain, headache, dizziness, or any other complaints. PMD: Dr. Shane Julian Time/Duration: Other (4 days) Symptom Onset: Gradual Symptom Course: Unchanged Activities at Onset: Light Context: Home Past Medical History - Provider Review Nursing Documentation Reviewed: Yes - Past History Past History: No Previous - Infectious Disease Hx of Infectious Diseases: None - Tetanus Immunization Tetanus Immunization: Unknown - Cardiac Hx Cardiac Disorders: Yes Hx Hypertension: Yes - Pulmonary Hx Respiratory Disorders: No - Neurological Hx Neurological Disorder: No - HEENT Hx HEENT Disorder: No - Renal Hx Renal Disorder: No - Endocrine/Metabolic Hx Endocrine Disorders: Yes Hx Diabetes Mellitus Type 2: Yes - Hematological/Oncological Hx Blood Disorders: Yes Hx Anemia: Yes - Integumentary Hx Dermatological Disorder: Yes - Musculoskeletal/Rheumatological Hx Musculoskeletal Disorders: Yes Hx Arthritis: Yes Hx Back Pain: Yes - Gastrointestinal Hx Gastrointestinal Disorders: No - Genitourinary/Gynecological Hx Genitourinary Disorders: Yes (hx fibroid uterus) - Psychiatric Hx Psychophysiologic Disorder: No Hx Substance Use: No - Past Surgical History Past Surgical History: No Previous - Surgical History Hx Cholecystectomy: Yes Hx Hysterectomy: Yes - Anesthesia Hx Anesthesia: Yes Hx Anesthesia Reactions: No Hx Malignant Hyperthermia: No - Suicidal Assessment Feels Threatened In Home Enviroment: No Family/Social History - Physician Review Nursing Documentation Reviewed: Yes Family/Social History: No Known Family HX Smoking Status: Light Smoker < 10 Cigarettes Daily Hx Alcohol Use: No Hx Substance Use: No Hx Substance Use Treatment: No Allergies/Home Meds Allergies/Adverse Reactions: Allergies No Known Allergies Allergy (Verified 04/09/19 11:34) Home Medications: Home Meds Medication Instructions Recorded Confirmed Acyclovir [Zovirax] 400 mg PO BID 01/11/18 01/16/18 Aspirin [Ecotrin] 81 mg PO DAILY 01/11/18 01/16/18 Atorvastatin [Lipitor] 20 mg PO DAILY 01/11/18 01/16/18 Gemfibrozil [Lopid] 600 mg PO 01/11/18 Meloxicam 7.5 mg PO DAILY 01/11/18 01/16/18 Mometasone 0.1% [Elocon 0.1%] 15 gm TP BID 01/11/18 01/16/18 Pioglitazone HCl 30 mg PO DAILY 01/11/18 01/16/18 cloNIDine [Catapres] 0.2 mg PO DAILY 01/11/18 01/16/18 Review of Systems - Physician Review All systems were reviewed & negative as marked: Yes - Review of Systems Constitutional: absent: Fevers, Other (chills) Respiratory: absent: SOB Cardiovascular: absent: Chest Pain Gastrointestinal: absent: Diarrhea, Nausea, Vomiting Genitourinary Female: absent: Dysuria, Frequency, Hematuria Musculoskeletal: absent: Back Pain, Neck Pain Skin: Rash (to face) Neurological: Other (tingling sensation to the lips and mouth). absent: Headache, Dizziness Physical Exam Vital Signs Reviewed: Yes Vital Signs Temp Pulse Resp BP Pulse Ox 12/12/18 11:27 98.0 F 79 16 180/91 H 99 Temperature: Afebrile Blood Pressure: Hypertensive Pulse: Regular Respiratory Rate: Normal Appearance: Positive for: Well-Appearing, Non-Toxic, Comfortable Pain Distress: None Mental Status: Positive for: Alert and Oriented X 3 - Systems Exam Head: Present: Atraumatic, Normocephalic, Swelling (slight periorbital swelling) Pupils: Present: PERRL Mouth: Present: Moist Mucous Membranes, Other (slight perioral swelling) Respiratory/Chest: Present: Clear to Auscultation, Good Air Exchange, Other (No airway compromise. Able to speak in full sentences. ). No: Respiratory Distress, Accessory Muscle Use, Wheezes Cardiovascular: Present: Regular Rate and Rhythm, Normal S1, S2. No: Murmurs Neurological: Present: GCS=15, Speech Normal Skin: Present: Warm, Dry, Normal Color, Other (Urticaria lesions scattered all over) Psychiatric: Present: Alert, Oriented x 3 Medical Decision Making ED Course and Treatment: 12/12/18 11:32 Impression: 58 year old female presents complaining of an allergic reaction and tingling sensation to the lips and eyes s/p using Pimecrolimus cream and Venzoyl wash prescribed by her Delinquent Tax Collection Assistant Plan: -- catapres, Benadryl, Pepcid, Prednisone Tab -- Reassess and disposition Prior Visits: Notes and results from previous visits were reviewed. Progress Notes: 12/12/18 12:22 On re-evaluation, patient feels better and is in no acute distress. I have discussed the plan with the patient, who expresses understanding. Patient in agreement with plan to be discharged home. Patient is stable for discharge. Patient was instructed to follow up with physician or return if symptoms worsen or new concerning symptoms arise. - Medication Orders Current Medication Orders: Discontinued Medications Clonidine HCl (Catapres) 0.2 mg PO STAT STA Stop: 12/12/18 11:29 Diphenhydramine HCl (Benadryl) 50 mg PO STAT STA Stop: 12/12/18 11:27 Famotidine (Pepcid) 40 mg PO STAT STA Stop: 12/12/18 11:27 Prednisone (Prednisone Tab) 60 mg PO STAT ONE Stop: 12/12/18 11:27 - Scribe Statement The provider has reviewed the documentation as recorded by the Brandie Murray Provider Scribe Attestation: All medical record entries made by the Lorenibmaria elena were at my direction and personally dictated by me. I have reviewed the chart and agree that the record accurately reflects my personal performance of the history, physical exam, medical decision making, and the department course for this patient. I have also personally directed, reviewed, and agree with the discharge instructions and disposition. Disposition/Present on Arrival - Present on Arrival Any Indicators Present on Arrival: No History of DVT/PE: No History of Uncontrolled Diabetes: No Urinary Catheter: No History Surgical Site Infection Following: None - Disposition Have Diagnosis and Disposition been Completed?: Yes Diagnosis: Allergic reaction caused by a drug Disposition: HOME/ ROUTINE Disposition Time: 12:20 Patient Plan: Discharge Patient Problems: Current Active Problems Problem Status Onset Allergic reaction caused by a drug Acute Condition: STABLE Discharge Instructions (ExitCare): Adverse Drug Reactions, Adult (DC), Adverse Drug Reactions, Adult Print Language: GREEK Additional Instructions: All medical record entries made by the Scribe were at my direction and personally dictated by me. I have reviewed the chart and agree that the record accurately reflects my personal performance of the history, physical exam, medical decision making, and the department course for this patient. I have also personally directed, reviewed, and agree with the discharge instructions and disposition. Please STOP applying your facial cream and wash prescribed by the street light repairer helper and inform her of your adverse reaction Take Benadryl every SIX hours and Pepcid for your symptoms Please take your Medrol dose pack(prednisone) as prescribed Please monitor for any additional symptoms(worsening of swelling, difficulty breathing) Please schedule an appointment with your street light repairer helper Prescriptions: cloNIDine [Catapres] 0.2 mg PO BID #10 tab DiphenhydrAMINE [Benadryl] 50 mg PO Q6H #10 cap Epinephrine HCl [Epipen Auto-Injector] 0.3 mg MR ONCE #0.3 ml Famotidine [Pepcid] 40 mg PO Q6H #10 tablet Methylprednisolone [Medrol Dose Pack (21 tabs)] 4 mg PO DAILY #21 mg Referrals: Bella Galaviz MD [Staff Provider] - Follow up with primary Forms: [employer] (Guamanian), WORK NOTE
[2018-12-12 12:38] VITALS: BP 124/87; PULSE 80; RESP 18; TEMP 98; O2SAT 98
== END 2018-12-12 13:00 | disposition home or self-care (01) ==
LOC: ED 10:59
DX: T49.0X5A Adverse effect of local antifungal, anti-infective and anti-inflammatory drugs, initial encounter (principal); E11.9 Type 2 diabetes mellitus without complications; F17.210 Nicotine dependence, cigarettes, uncomplicated; I10 Essential (primary) hypertension

== ENCOUNTER 2019-01-07 08:48 | Emergency (ER) | payer OTHER ==
[2019-01-07 08:48] VITALS: BMI 32.3
[2019-01-07 09:25] VITALS: PULSE 91; TEMP 98.1
[2019-01-07] MEDS ORDERED: Lidocaine 5% Patch TD STA (09:41)
--- NOTE | 2019-01-07 09:49 | ED PDOC ---
Arrival/HPI - General Chief Complaint: Back Pain Time Seen by Provider: 01/07/19 08:48 Historian: Patient - History of Present Illness Narrative History of Present Illness (Text): 01/07/19 09:46 58 y.o female with past medical history of hypertension (On Clonidine) and diabetes, who presents to the emergency department complaining of lower back and left leg pain. Patient reports she was cleaning her apartment yesterday when she first noticed the back pain. Pain gradually become worse radiating to the left leg. Patient reports taking ibuprofen with no significant relief. Patient states pain worsens with sitting or bending. Patient denies any bowel, bladder incontinence, saddle anesthesia, fever, or trauma. Time/Duration: 24 hours Symptom Onset: Gradual Symptom Course: Unchanged Context: Home Past Medical History - Provider Review Nursing Documentation Reviewed: Yes - Past History Past History: No Previous - Infectious Disease Hx of Infectious Diseases: None - Tetanus Immunization Tetanus Immunization: Unknown - Reproductive Menopause: Yes - Cardiac Hx Cardiac Disorders: Yes Hx Hypertension: Yes - Pulmonary Hx Respiratory Disorders: No - Neurological Hx Neurological Disorder: No - HEENT Hx HEENT Disorder: No - Renal Hx Renal Disorder: No - Endocrine/Metabolic Hx Endocrine Disorders: Yes Hx Diabetes Mellitus Type 2: Yes - Hematological/Oncological Hx Blood Disorders: Yes Hx Anemia: Yes - Integumentary Hx Dermatological Disorder: Yes - Musculoskeletal/Rheumatological Hx Musculoskeletal Disorders: Yes Hx Arthritis: Yes Hx Back Pain: Yes - Gastrointestinal Hx Gastrointestinal Disorders: No - Genitourinary/Gynecological Hx Genitourinary Disorders: Yes (hx fibroid uterus) - Psychiatric Hx Psychophysiologic Disorder: No Hx Substance Use: No - Past Surgical History Past Surgical History: No Previous - Surgical History Hx Cholecystectomy: Yes Hx Hysterectomy: Yes - Anesthesia Hx Anesthesia: Yes Hx Anesthesia Reactions: No Hx Malignant Hyperthermia: No - Suicidal Assessment Feels Threatened In Home Enviroment: No Family/Social History - Physician Review Nursing Documentation Reviewed: Yes Family/Social History: Unknown Family HX Smoking Status: Light Smoker < 10 Cigarettes Daily Hx Alcohol Use: No Hx Substance Use: No Hx Substance Use Treatment: No Allergies/Home Meds Allergies/Adverse Reactions: Allergies strawberry Allergy (Verified 01/07/19 09:30) RASH Home Medications: Home Meds Medication Instructions Recorded Confirmed Acyclovir [Zovirax] 400 mg PO BID 01/11/18 01/16/18 Aspirin [Ecotrin] 81 mg PO DAILY 01/11/18 01/16/18 Atorvastatin [Lipitor] 20 mg PO DAILY 01/11/18 01/16/18 Gemfibrozil [Lopid] 600 mg PO 01/11/18 Meloxicam 7.5 mg PO DAILY 01/11/18 01/16/18 Mometasone 0.1% [Elocon 0.1%] 15 gm TP BID 01/11/18 01/16/18 Pioglitazone HCl 30 mg PO DAILY 01/11/18 01/16/18 cloNIDine [Catapres] 0.2 mg PO DAILY 01/11/18 01/16/18 Review of Systems - Physician Review All systems were reviewed & negative as marked: Yes - Review of Systems Musculoskeletal: Back Pain (lower back pain with radiating left leg pain. ) Physical Exam - Physical Exam Narrative Physical Exam (Text): 01/07/19 09:57 Gen: VS reviewed, alert, well developed, well nourished, nontoxic, mild distress. ENT: normal pharynx. Eye: EOMI, PERRL. Neck: no JVD, supple, no adenopathy. CV: regular rate, regular rhythm, no rubs, no murmur, no gallops, S1, S2, pulses equal and strong. Pulm: no distress, clear to auscultation, no wheeze, no rhonchi, breath sounds equal, no rales. Abd: soft, nontender, no guarding, no rebound, no rigidity, normal bowel sounds. Ext: no edema. Skin: good color, no rash, no cyanosis. Psych: responds appropriately to questions, normal affect. Neuro: oriented x 3, CN2-12 intact grossly, motor intact, sensation intact. Vital Signs Reviewed: Yes Vital Signs Temp Pulse Resp BP Pulse Ox 01/07/19 09:15 98.1 F 91 H 17 131/79 100 Temperature: Afebrile Blood Pressure: Normal Pulse: Regular Respiratory Rate: Normal Appearance: Positive for: Non-Toxic, Comfortable, Uncomfortable (Appears uncomfortable secondary to pain. ) Pain Distress: None Mental Status: Positive for: Alert and Oriented X 3 - Systems Exam Back: Present: Other (Can't flex secondary to pain. No tenderness to the back. ) Skin: No: Rashes Medical Decision Making ED Course and Treatment: 01/07/19 10:26 patient seen for radicular low back pain, no neuro deficits, patient reports sig improvement of symptoms and is able to function better. stable for dc and outpt follow up. patient understands that advanced imaging might be needed for persistent pain. patient encouraged to follow up with pcp. - RAD Interpretation Narrative RAD Interpretations (Text): 01/07/19 10:30 ls xr my read: no fx, mild djd Radiology Orders: 01/07/19 09:40 LS SPINE WITH OBL > 18 YRS OLD [RAD] Stat Acquisitions Assistant: ED Physician - Medication Orders Current Medication Orders: Discontinued Medications Acetaminophen (Tylenol 325mg Tab) 975 mg PO STAT STA Stop: 01/07/19 09:42 Cyclobenzaprine HCl (Flexeril) 5 mg PO STAT STA Stop: 01/07/19 09:42 Ketorolac Tromethamine (Toradol) 60 mg IM STAT STA Stop: 01/07/19 09:42 Lidocaine (Lidoderm) 1 ea TD DAILY STA Stop: 01/07/19 09:42 - Scribe Statement The provider has reviewed the documentation as recorded by the Scribe Kylee Cantu All medical record entries made by the Lorenibmaria elena were at my direction and personally dictated by me. I have reviewed the chart and agree that the record accurately reflects my personal performance of the history, physical exam, medical decision making, and the department course for this patient. I have also personally directed, reviewed, and agree with the discharge instructions and disposition. Disposition/Present on Arrival - Present on Arrival Any Indicators Present on Arrival: No History of DVT/PE: No History of Uncontrolled Diabetes: No Urinary Catheter: No History of Decub. Ulcer: No History Surgical Site Infection Following: None - Disposition Have Diagnosis and Disposition been Completed?: Yes Diagnosis: Radiculopathy of lumbar region Disposition: HOME/ ROUTINE Disposition Time: 10:27 Patient Plan: Discharge Patient Problems: Current Active Problems Problem Status Onset Radiculopathy of lumbar region Acute Condition: STABLE Discharge Instructions (ExitCare): Radiculopathy (DC) Additional Instructions: you must follow up with your primary care doctor if advanced imaging is needed for persistent pain or worsening symptoms. return for any new or worsening symptoms especially weakness, numbness. Prescriptions: Cyclobenzaprine [Flexeril] 5 mg PO TID #15 tab Ibuprofen [Motrin Tab] 600 mg PO QID #42 tab Lidocaine 5% [Lidoderm] 1 ea TD Q12H #14 patch Referrals: Shane Julian MD [Primary Care Provider] - Follow up with primary Forms: [employer] (Georgian), WORK NOTE
[2019-01-07 10:38] VITALS: BP 132/77; RESP 16; O2SAT 98
--- NOTE | 2019-01-07 11:31 | RAD ---
Date of service: 01/07/2019 PROCEDURE: Radiographs of the Lumbar Spine. HISTORY: Left radicular Pain. No history of recent/ related trauma provided. COMPARISON: No prior. TECHNIQUE: 5 views obtained. FINDINGS: BONES: Normal alignment. No listhesis. No fracture. DISC SPACES: Unremarkable. OTHER FINDINGS: None. IMPRESSION: Unremarkable radiographs of the lumbar spine.
== END 2019-01-07 10:37 | disposition home or self-care (01) ==
LOC: ED 08:48
DX: M54.16 Radiculopathy, lumbar region (principal); I10 Essential (primary) hypertension; E11.9 Type 2 diabetes mellitus without complications; F17.210 Nicotine dependence, cigarettes, uncomplicated
CPT/HCPCS: 72110; 96372; 99282; J1885